=== PATIENT | female | born 1985 | race African-American/Black ===

== ENCOUNTER 2017-03-02 11:48 | Emergency (ER) | payer OTHER ==
[~2017-03-02] VITALS: Ht 172.7 cm; Wt 166.5 kg
[~2017-03-02 11:48] MED LIST: CLIN150C14 PO; DICL500C PO; HYDR-971 PO; MUPI1OIN NS; SULF1TAB24 PO; TETR500C3 PO
[2017-03-02 12:13] VITALS: BP 139/89
[2017-03-02] MEDS ORDERED: SULF1TAB24 PO (12:27)
[2017-03-02] MEDS ORDERED: NAPR500T PO (12:27)
--- NOTE | 2017-03-02 12:28 | PHYS DOC ---
Past Medical History Past Medical History: Other Additional Past Medical Histor: abscess MULTIPLE Past Surgical History: Cholecystectomy, Other Additional Past Surgical Histo: MULTIPLE I&D'S ABSCESSES Additional Information: 0.5 PPD Alcohol Use: Occasionally Drug Use: Marijuana Adult General Chief Complaint Chief Complaint: ABSCESS [facility] HPI Patient is a 31 year old female presents to the emergency department with recurrent left axillary abscess. Patient states she's had symptoms for 3 days. No fever. No discharge from the wound. Review of Systems Review of Systems Constitutional: Denies fever or chills [] Eyes: Denies change in visual acuity, redness, or eye pain [] HENT: Denies nasal congestion or sore throat [] Respiratory: Denies cough or shortness of breath [] Cardiovascular: No additional information not addressed in HPI [] GI: Denies abdominal pain, nausea, vomiting, bloody stools or diarrhea [] : Denies dysuria or hematuria [] Musculoskeletal: Denies back pain or joint pain [] Integument: abscess Neurologic: Denies headache, focal weakness or sensory changes [] Endocrine: Denies polyuria or polydipsia [] Allergies Allergies Allergies Coded Allergies Type Severity Reaction Last Updated Verified pineapple Allergy Unknown hives 10/02/15 Yes Physical Exam Physical Exam Constitutional: Well developed, well nourished, no acute distress, non-toxic appearance. [] Neck: Normal range of motion, no tenderness, supple, no stridor. [] Cardiovascular:Heart rate regular rhythm, no murmur [] Lungs & Thorax: Bilateral breath sounds clear to auscultation [] Skin: Warm, dry, left axillary region with a 1 cm papule, no erythema, mildly indurated. Tender to palpate. There are no vesicles, bullae, pustules. Current Patient Data Vital Signs Vital Signs Date Time Temp Pulse Resp B/P (MAP) Pulse Ox O2 Delivery O2 Flow Rate FiO2 03/02/17 12:13 97.9 75 14 139/89 (106) 99 Room Air 97.9 EKG EKG [] Radiology/Procedures Radiology/Procedures [] Course & Med Decision Making Course & Med Decision Making Pertinent Labs and Imaging studies reviewed. (See chart for details) [] Dragon Disclaimer Dragon Disclaimer This electronic medical record was generated, in whole or in part, using a voice recognition dictation system. Departure Departure Impression: Primary Impression: Cellulitis Disposition: HOME, SELF-CARE Condition: STABLE Referrals: NO PCP (PCP) Patient Instructions: Cellulitis Scripts Naproxen (NAPROSYN) 500 Mg Tablet 1 TAB PO BID Y for PAIN, #20 TAB 1 Refill Prov: DEREK THOMPSON APRN 03/02/17 Sulfamethoxazole/Trimethoprim (BACTRIM DS TABLET) 1 Each Tablet 1 TAB PO BID, #14 TAB Prov: DEREK THOMPSON APRN 03/02/17 DEREK THOMPSON APRN Mar 02, 2017 12:28
== END 2017-03-02 12:33 | disposition home or self-care (01) ==
LOC: ER 11:48
DX: L03.112 Cellulitis of left axilla (principal); F12.10 Cannabis abuse, uncomplicated; F17.200 Nicotine dependence, unspecified, uncomplicated; Z91.018 Allergy to other foods
CPT/HCPCS: 99283

== ENCOUNTER 2018-06-08 16:36 | Emergency (ER) | payer SELFPAY ==
[~2018-06-08] VITALS: Ht 170.2 cm; Wt 152.0 kg
[~2018-06-08 16:36] MED LIST changes: +NAPR-683 PO; -TETR500C3 PO; +[UNRECOGNIZED DRUG - CODE] PO
[2018-06-08 16:46] VITALS: BP 137/75
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
[2018-06-08] MEDS ORDERED: DICL50TA4 PO (17:29)
[2018-06-08] MEDS ORDERED: CYCL10TA2 PO (17:29)
[2018-06-08] MEDS ORDERED: METH4TAB2 PO (17:29)
== END 2018-06-08 17:35 | disposition home or self-care (01) ==
LOC: ER 16:36
DX: M54.5 Low back pain (principal); M25.552 Pain in left hip; G89.11 Acute pain due to trauma; Z91.018 Allergy to other foods; V46.4XXA Person boarding or alighting a car injured in collision with other nonmotor vehicle, initial encounter; Y92.488 Other paved roadways as the place of occurrence of the external cause; Y93.89 Activity, other specified; Y99.8 Other external cause status
CPT/HCPCS: 72100; 99284

== ENCOUNTER 2019-11-21 16:30 | Emergency (ER) | payer MEDICAID, OTHER ==
[~2019-11-21] VITALS: Ht 170.2 cm; Wt 147.7 kg
[~2019-11-21 16:30] MED LIST changes: +CYCL10TA2 PO; +DICL50TA4 PO; +HYDR-3164 PO; -HYDR-971 PO; +METH4TAB2 PO
[2019-11-21 17:10] LABS: BILIRUBIN,URINE NEGATIVE (NEG); CLARITY,URINE CLEAR; COLOR,URINE YELLOW; NITRITE,URINE POSITIVE (NEG); PROTEIN,URINE 100 mg/dL (NEG-TRACE); UROBILINOGEN,URINE 0.2 mg/dL (0.2 mg/dL)
[2019-11-21] MEDS ORDERED: FAMOTIDINE 20 MG/2 ML VIAL IVP ONE (17:15)
[2019-11-21] MEDS ORDERED: ONDANSETRON PF 4 MG/2 ML VIAL. IV ONE (17:15)
[2019-11-21] MEDS ORDERED: IV NORMAL SALINE 1000ML BAG 1,000 ML IV ONE (17:15)
[2019-11-21] MEDS ORDERED: LIDO:MAALOX 1:1 20 ML SINGLE DOSE. SWSW ONE (17:15)
[2019-11-21 17:20] LABS: BACTERIA,URINE MANY /HPF (0-FEW); SQUAMOUS EPITHELIAL CELL,UR MANY /LPF
[2019-11-21 17:29] LABS: BASO # 0.1 x10^3/uL (0.0-0.2); BASO % 1 % (0-3); EOS # 0.2 x10^3/uL (0.0-0.7); EOS % 2 % (0-3); HEMATOCRIT 44.3 % (36.0-47.0); HEMOGLOBIN 15.1 g/dL (12.0-15.5); LYMPH % 31 % (24-48); MEAN CORPUSCULAR HEMOGLOBIN 30 pg (25-35); MEAN CORPUSCULAR HGB CONC 34 g/dL (31-37); MEAN CORPUSCULAR VOLUME 88 fL (79-100); MONO # 0.6 x10^3/uL (0.0-1.1); MONO % 6 % (0-9); NEUT # 5.7 x10^3/uL (1.8-7.7); NEUT % 60 % (31-73); PLATELET COUNT 250 x10^3/uL (140-400); RED BLOOD COUNT 5.02 x10^6/uL (3.50-5.40); RED CELL DISTRIBUTION WIDTH 13.7 % (11.5-14.5); WHITE BLOOD COUNT 9.6 x10^3/uL (4.0-11.0)
[2019-11-21] MEDS ORDERED: cefTRIAXone IV Push 1 GM VIAL. IVP ONE (17:45)
[2019-11-21 18:01] LABS: U PREG PATIENT NEGATIVE (NEG)
[2019-11-21] MEDS ORDERED: PROCHLORPERAZINE 10 MG/2 ML VIAL. ONE (18:08)
[2019-11-21] MEDS ORDERED: PROCHLORPERAZINE 10 MG/2 ML VIAL. IV ONE (18:15)
[2019-11-21 18:16] LABS: CALCIUM 9.1 mg/dL (8.5-10.1); CREATININE 0.8 mg/dL (0.6-1.0); GFR 99.4; POTASSIUM 4.4 mmol/L (3.5-5.1)
[2019-11-21 18:22] LABS: ALBUMIN/GLOBULIN RATIO 0.8 (1.0-1.7); TOTAL BILIRUBIN 0.5 mg/dL (0.2-1.0); TOTAL PROTEIN 6.6 g/dL (6.4-8.2)
[2019-11-21] MEDS ORDERED: CEPH-264 PO (19:00)
[2019-11-21] MEDS ORDERED: METF500T16 PO (19:00)
--- NOTE | 2019-11-21 19:01 | PHYS DOC ---
Past Medical History Past Medical History: No Pertinent History Additional Past Medical Histor: abscess MULTIPLE Past Surgical History: Cholecystectomy Additional Past Surgical Histo: MULTIPLE I&D'S ABSCESSES Smoking Status: Unknown if ever smoked Alcohol Use: None Drug Use: Marijuana Adult General Chief Complaint Chief Complaint: ABDOMINAL PAIN HPI HPI Patient is a 33 year old AA female, accompanied by her significant other, who presents to the emergency department with complaints of right flank pain for the last week. Patient states that yesterday she had some dark vaginal bleeding but reports that this is normal for her. For the last 6 months patient has experienced irregular vaginal bleeding. She states it is due to the Norplant control that she has. She denies any dysuria, increased urinary frequency, foul-smelling urine, or abnormal vaginal discharge. She denies any shortness of breath, nausea, vomiting, diarrhea, chest pain, constipation, sore throat, or cough. She currently describes the pain in her upper abdomen and right flank as a constant burning sensation that she rates 8 out of 10 on the pain scale. Patient denies any alleviating factors, she states that the pain is sometimes worse after she eats. Review of Systems Review of Systems Complete ROS is negative unless otherwise noted in HPI. Current Medications Current Medications Current Medications Medications (Trade) Dose Ordered Sig/Charleen Start Time Stop Time Status Last Admin Dose Admin Ceftriaxone Sodium (Rocephin) 1 gm 1X ONCE 11/21/19 17:45 11/21/19 17:46 DC 11/21/19 18:02 1 GM Famotidine (Pepcid Vial) 20 mg 1X ONCE 11/21/19 17:15 11/21/19 17:16 DC 11/21/19 17:26 20 MG Multi-Ingredient Mouthwash/Gargle (Gi Cocktail) 20 ml 1X ONCE 11/21/19 17:15 11/21/19 17:16 DC 11/21/19 17:27 20 ML Ondansetron HCl (Zofran) 4 mg 1X ONCE 11/21/19 17:15 11/21/19 17:16 DC 11/21/19 17:27 4 MG Prochlorperazine Edisylate (Compazine) 10 mg 1X ONCE 11/21/19 18:15 11/21/19 18:16 DC 11/21/19 18:11 10 MG Sodium Chloride 1,000 ml @ 1,000 mls/hr 1X ONCE 11/21/19 17:15 11/21/19 18:14 DC 11/21/19 17:15 1,000 MLS/HR Allergies Allergies Allergies Coded Allergies Type Severity Reaction Last Updated Verified pineapple Allergy Unknown hives 10/02/15 Yes Physical Exam Physical Exam See Above Constitutional: Well developed, well nourished, no acute distress, non-toxic appearance, obese. [] HENT: Normocephalic, atraumatic, bilateral external ears normal, oropharynx moist, no oral exudates, nose normal. [] Eyes: PERRLA, EOMI, conjunctiva normal, no discharge. [] Neck: Normal range of motion, no stridor. [] Cardiovascular:Heart rate regular rhythm, no murmur [] Lungs & Thorax: Bilateral breath sounds clear to auscultation [] Abdomen: Bowel sounds normal, soft, epigastric TTP, no rebound tenderness, no guarding, no masses, no pulsatile masses. [] Skin: Warm, dry, no erythema, no rash. [] Back: No CVA tenderness. [] Extremities: No cyanosis, no clubbing, ROM intact, no edema. [] Neurologic: Alert and oriented X 3, no focal deficits noted. [] Psychologic: Affect normal, judgement normal, mood normal. [] Current Patient Data Vital Signs Vital Signs Date Time Temp Pulse Resp B/P (MAP) Pulse Ox O2 Delivery O2 Flow Rate FiO2 11/21/19 19:34 98.0 78 20 158/94 (115) 97 Room Air 98.0 Lab Values Laboratory Tests Test 11/21/19 16:50 11/21/19 17:15 11/21/19 17:44 Urine Collection Type Unknown Urine Color Yellow Urine Clarity Clear Urine pH 6.0 (<5.0-8.0) Urine Specific [place] >=1.030 (1.000-1.030) Urine Protein 100 mg/dL (NEG-TRACE) Urine Glucose (UA) >=1000 mg/dL (NEG) Urine Ketones (Stick) 15 mg/dL (NEG) Urine Blood Large (NEG) Urine Nitrite Positive (NEG) Urine Bilirubin Negative (NEG) Urine Urobilinogen Dipstick 0.2 mg/dL (0.2 mg/dL) Urine Leukocyte Esterase Negative (NEG) Urine RBC 1-2 /HPF (0-2) Urine WBC 5-10 /HPF (0-4) Urine Squamous Epithelial Cells Many /LPF Urine Bacteria Many /HPF (0-FEW) Urine Mucus Marked /LPF Urine Test Negative (NEG) White Blood Count 9.6 x10^3/uL (4.0-11.0) Red Blood Count 5.02 x10^6/uL (3.50-5.40) Hemoglobin 15.1 g/dL (12.0-15.5) Hematocrit 44.3 % (36.0-47.0) Mean Corpuscular Volume 88 fL (79-100) Mean Corpuscular Hemoglobin 30 pg (25-35) Mean Corpuscular Hemoglobin Concent 34 g/dL (31-37) Red Cell Distribution Width 13.7 % (11.5-14.5) Platelet Count 250 x10^3/uL (140-400) Neutrophils (%) (Auto) 60 % (31-73) Lymphocytes (%) (Auto) 31 % (24-48) Monocytes (%) (Auto) 6 % (0-9) Eosinophils (%) (Auto) 2 % (0-3) Basophils (%) (Auto) 1 % (0-3) Neutrophils # (Auto) 5.7 x10^3/uL (1.8-7.7) Lymphocytes # (Auto) 3.0 x10^3/uL (1.0-4.8) Monocytes # (Auto) 0.6 x10^3/uL (0.0-1.1) Eosinophils # (Auto) 0.2 x10^3/uL (0.0-0.7) Basophils # (Auto) 0.1 x10^3/uL (0.0-0.2) Sodium Level 139 mmol/L (136-145) Potassium Level 4.4 mmol/L (3.5-5.1) Chloride Level 101 mmol/L (98-107) Carbon Dioxide Level 24 mmol/L (21-32) Anion Gap 14 (6-14) Blood Urea Nitrogen 14 mg/dL (7-20) Creatinine 0.8 mg/dL (0.6-1.0) Estimated GFR (Cockcroft-Gault) 99.4 BUN/Creatinine Ratio 18 (6-20) Glucose Level 326 mg/dL (70-99) H Calcium Level 9.1 mg/dL (8.5-10.1) Total Bilirubin 0.5 mg/dL (0.2-1.0) Aspartate Amino Transferase (AST) 19 U/L (15-37) Alanine Aminotransferase (ALT) 28 U/L (14-59) Alkaline Phosphatase 97 U/L (46-116) Total Protein 6.6 g/dL (6.4-8.2) Albumin 3.0 g/dL (3.4-5.0) L Albumin/Globulin Ratio 0.8 (1.0-1.7) L Lipase 192 U/L (73-393) Laboratory Tests 11/21/19 17:15 Laboratory Tests 11/21/19 17:44 EKG EKG [] Radiology/Procedures Radiology/Procedures [] Course & Med Decision Making Course & Med Decision Making Pertinent Labs and Imaging studies reviewed. (See chart for details) 33-year-old -[place] female presented to the emergency room with complaints of right flank pain and epigastric burning that began a week ago. Labs including CBC CMP and UA were ordered. The patient was given 1 L of normal saline, 4 of Zofran, 10 of Compazine, 20 of Pepcid, and a GI cocktail while in the emergency department. Patient reported feeling better after these medications. Her CBC is unremarkable, CMP reveals a blood glucose of 326 otherwise unremarkable, the patient's urinalysis is concerning for a urinary tract infection with positive nitrites, 5-10 white blood cells, and many bacter ia. Urine hCG is negative. Patient was given 1 g of IV Rocephin in the emergency department. The patient was informed of her diagnosis of a urinary tract infection and new diagnosis of diabetes. She was given prescriptions for Keflex and metformin. The patient was instructed to follow-up with her primary care doctor in the next 1 to 2 weeks, she was provided with a list of local providers. She was encouraged to return to the emergency department if her symptoms worsen or she developed a fever. Patient verbalized an understanding of home care, medications, follow-up, and return to ED instructions and was in agreement with the plan of care. [] Dragon Disclaimer Dragon Disclaimer This electronic medical record was generated, in whole or in part, using a voice recognition dictation system. Departure Departure Impression: Primary Impression: Urinary tract infection Additional Impression: Newly diagnosed diabetes Disposition: HOME, SELF-CARE Condition: STABLE Referrals: NO PCP (PCP) Patient Instructions: Diabetes Meal Planning Guide, Urinary Tract Infection, Ea sy-to-Read Additional Instructions: Fill prescription(s) and use as directed. Avoid bladder irritants such as caffeine, carbonation, and spicy foods. Increase clear fluids. You have been diagnosed with diabetes today it is imperative that you follow-up with a primary care doctor within the next 1 to 2 weeks, use the list provided to find a primary care doctor, be sure to inform them that you had a blood sugar of 326 in the emergency department and a large amount of glucose in your urine. Return to the ER if symptoms worsen. Scripts Metformin Hcl (METFORMIN HCL) 500 Mg Tablet 500 MG PO HS for ANTI-DIABETIC for 14 Days, #14 TAB 0 Refills Prov: GRAYSON PURDY APRN 11/21/19 Cephalexin (KEFLEX) 500 Mg Capsule 500 MG PO BID for 7 Days, #14 CAP 0 Refills Prov: GRAYSON PURDY APRN 11/21/19 Problem Qualifiers Primary Impression: Urinary tract infection Urinary tract infection type: site unspecified Hematuria presence: without hematuria Qualified Codes: N39.0 - Urinary tract infection, site not specified GRAYSON PURDY APRN Nov 21, 2019 19:01
[2019-11-21 19:34] VITALS: BP 158/94
== END 2019-11-21 19:33 | disposition home or self-care (01) ==
LOC: ER 16:30
DX: N39.0 Urinary tract infection, site not specified (principal); E11.9 Type 2 diabetes mellitus without complications; N92.6 Irregular menstruation, unspecified; Z90.49 Acquired absence of other specified parts of digestive tract; Z91.018 Allergy to other foods
CPT/HCPCS: 36415; 80053; 81001; 81025; 83690; 85025; 87086; 96374; 96375; 99285; J0696; J0780; J2405; J3490; J7030; 96361